=== PATIENT | male | born 1960 | race African-American/Black ===

== ENCOUNTER 2025-04-05 00:20 | Inpatient (IN) | payer MEDICAID, OTHER ==
[~2025-04-05] VITALS: Ht 195.6 cm; Wt 115.2 kg
[2025-04-05 01:47] LABS: BASOPHILS % 0.7 % (0.0-2.0); EOSINOPHILS % 1.3 % (0.0-5.0); HEMATOCRIT. 42.5 % (42.0-52.0); HEMOGLOBIN. 14.4 g/dL (14.0-18.0); LYMPHOCYTES % 41.7 % (20.0-50.0); MEAN PLATELET VOLUME 9.5 fl (7.4-10.4); MONOCYTES % 6.8 % (2.0-8.0); NEUTROPHILS % 49.5 % (40.0-76.0); PLATELET 159 x1000/uL (130-400); RED BLOOD CELL COUNT 4.38 mill/uL (4.7-6.1); RED CELL DISTRIBUTION WIDTH 14.4 % (11.6-14.6)
[2025-04-05 01:57] LABS: CREATININE 1.2 mg/dL (0.6-1.3); UREA NITROGEN BLOOD 10 mg/dL (9-23)
[2025-04-05 01:58] LABS: TROPONIN I HIGH SENSITIVITY 19 ng/L (3.0-53)
[2025-04-05 02:00] LABS: PHOSPHORUS 2.7 mg/dL (2.5-4.9)
[2025-04-05] MEDS: FUROSEMIDE 40MG/4ML VIAL IVP NR (02:41)
[2025-04-05] MEDS: ASPIRIN 325MG EC TABLET PO NR (02:42)
[2025-04-05 03:06] LABS: CLARITY URINE CLEAR (CLEAR); COLOR URINE YELLOW (YELLOW); GLUCOSE URINE NEGATIVE (NEGATIVE); KETONES URINE NEGATIVE (NEGATIVE); LEUKOCYTE ESTERASE URINE NEGATIVE (NEGATIVE); NITRITE URINE NEGATIVE (NEGATIVE); OCCULT BLOOD URINE 1+ (NEGATIVE); PH URINE 5.5 (4.5-8.0); PROTEIN URINE NEGATIVE (NEGATIVE); SPECIFIC GRAVITY URINE 1.012 (1.005-1.030); UROBILINOGEN URINE 1.0 E.U./dL (0.2-1.0)
[2025-04-05 05:39] LABS: BACTERIA URINE NONE SEEN; RBC URINE 0-2 /hpf (0-2); SQUAMOUS EPITHELIAL CELL URINE NONE SEEN /lpf (RARE/1+); WBC URINE 0-2 /hpf (0-2)
[2025-04-05 07:00] VITALS: BP 137/65; PULSE 89; RESP 20; TEMP 36.4; O2SAT 100
[2025-04-05 08:00] VITALS: BP 126/84; PULSE 46; RESP 15; RESP 20; TEMP 36.3; TEMP 36.3068; O2SAT 98
[2025-04-05] MEDS ORDERED: ACETAMINOPHEN 325MG TABLET PO PRN ×2 (08:00→14:00)
[2025-04-05] MEDS ORDERED: NALOXONE HCL 0.4MG/ML VIAL IV PRN (08:00)
[2025-04-05] MEDS ORDERED: ENOXAPARIN 40MG/0.4ML SYR SUBCUT SCH (09:00)
[2025-04-05] MEDS: ENOXAPARIN 30MG/0.3ML SYR SUBCUT SCH (09:17)
[2025-04-05 12:00] VITALS: BP 109/77; PULSE 80; RESP 18; TEMP 36.3; O2SAT 98
[2025-04-05] MEDS ORDERED: IPRATROPIUM/ALBUTEROL 0.5-3(2.5)MG/3ML NEB HHN PRN (14:15)
[2025-04-05] MEDS: PANTOPRAZOLE SODIUM 40 MG/VIAL IV SCH (15:04)
[2025-04-05 16:00] VITALS: BP 131/78; PULSE 46; RESP 15; TEMP 36.5; O2SAT 97
[2025-04-05 16:06] LABS: CLARITY URINE CLEAR (CLEAR); COLOR URINE YELLOW (YELLOW); GLUCOSE URINE NEGATIVE (NEGATIVE); KETONES URINE NEGATIVE (NEGATIVE); LEUKOCYTE ESTERASE URINE NEGATIVE (NEGATIVE); NITRITE URINE NEGATIVE (NEGATIVE); OCCULT BLOOD URINE NEGATIVE (NEGATIVE); PH URINE 6.0 (4.5-8.0); PROTEIN URINE NEGATIVE (NEGATIVE); SPECIFIC GRAVITY URINE 1.008 (1.005-1.030); UROBILINOGEN URINE 2.0 E.U./dL (0.2-1.0)
[2025-04-05 16:26] LABS: BACTERIA URINE TRACE; RBC URINE NONE SEEN /hpf (0-2); SQUAMOUS EPITHELIAL CELL URINE RARE /lpf (RARE/1+); WBC URINE 0-2 /hpf (0-2)
[2025-04-05 16:30] LABS: *AMPHETAMINES SCREEN URINE NEGATIVE (NEGATIVE); *BARBITURATES SCREEN URINE NEGATIVE (NEGATIVE); *BENZODIAZEPINES SCREEN URINE NEGATIVE (NEGATIVE); *COCAINE SCREEN URINE NEGATIVE (NEGATIVE)
[2025-04-05 16:31] LABS: CANNABINOID URINE SCREEN NEGATIVE (NEGATIVE); ECSTASY MDMA SCREEN URINE NEGATIVE (NEGATIVE); METHADONE URINE SCREEN NEGATIVE (NEGATIVE); OPIATES URINE SCREEN NEGATIVE (NEGATIVE); PHENCYCLIDINE URINE SCREEN NEGATIVE (NEGATIVE)
[2025-04-05 20:00] VITALS: BP 123/96; PULSE 46; RESP 18; TEMP 36.7; O2SAT 99
[2025-04-05 21:56] LABS: TRIGLYCERIDE 162.0 mg/dL (0-150)
[2025-04-05 21:57] LABS: LDL CHOLESTEROL 74.0 mg/dL (5-100)
[2025-04-05 22:00] LABS: T4 FREE 1.04 ng/dL (0.89-1.76)
[2025-04-06] VITALS (7 sets, daily range): BP systolic 99–124; BP diastolic 72–80; PULSE 50–101; RESP 18–19; TEMP 36.3–36.8; O2SAT 95–100
[2025-04-06 07:09] LABS: BASOPHILS % 0.7 % (0.0-2.0); EOSINOPHILS % 1.3 % (0.0-5.0); HEMATOCRIT. 40.1 % (42.0-52.0); HEMOGLOBIN. 13.6 g/dL (14.0-18.0); LYMPHOCYTES % 40.3 % (20.0-50.0); MEAN PLATELET VOLUME 9.6 fl (7.4-10.4); MONOCYTES % 8.8 % (2.0-8.0); NEUTROPHILS % 48.9 % (40.0-76.0); PLATELET 141 x1000/uL (130-400); RED BLOOD CELL COUNT 4.14 mill/uL (4.7-6.1); RED CELL DISTRIBUTION WIDTH 14.5 % (11.6-14.6)
[2025-04-06 07:14] LABS: CREATININE 1.1 mg/dL (0.6-1.3); UREA NITROGEN BLOOD 12 mg/dL (9-23)
[2025-04-06] MEDS: FUROSEMIDE 40MG/4ML VIAL IVP SCH (09:23)
[2025-04-06] MEDS: METOPROLOL TARTRATE 25MG TABLET PO SCH (11:30)
[2025-04-06 18:05] LABS: BG BASE EXCESS -0.4 mmol/L (-2.0-3.0); BG CARBOXYHEMOGLOBIN 0.8 % (0.5-1.5); BG DEOXYHEMOGLOBIN 6.6 % (0.0-5.0); BG FRACTION INSPIRED OXYGEN 21; BG HCO3 ACT 23.8 mmol/L (21.0-28.0); BG METHEMOGLOBIN 0.0 % (0.5-1.5); BG OXYGEN SATURATION 93.3 % (94.0-98.0); BG OXYHEMOGLOBIN 92.6 % (94.0-98.0); BG PCO2 37.8 mmHg (35.0-48.0); BG PH 7.417 (7.350-7.450); BG PO2 67.3 mmHg (83.0-108.0); BG SAMPLE SITE RIGHT RADIAL; BG TOTAL HEMOGLOBIN 15.2 g/dL (13.5-17.5); BG VENT MODE ROOM AIR
[2025-04-06] MEDS ORDERED: HYDR10TA34 PO (18:16)
[2025-04-06] MEDS ORDERED: LISI-186 PO (18:16)
[2025-04-06] MEDS ORDERED: GABA-1180 PO (18:16)
[2025-04-06] MEDS ORDERED: ATOR-2 PO (18:16)
[2025-04-06] MEDS ORDERED: IBUP-2030 PO (18:16)
[2025-04-06] MEDS ORDERED: METF-414 PO (18:16)
[2025-04-06] MEDS ORDERED: ASPI-1406 PO (18:16)
[2025-04-06] MEDS ORDERED: FLUO20SO24 PO (18:16)
[2025-04-06] MEDS ORDERED: BACL-141 PO (18:16)
[2025-04-06] MEDS: IPRATROPIUM/ALBUTEROL 0.5-3(2.5)MG/3ML NEB HHN SCH (21:03)
[2025-04-06] MEDS: BUDESONIDE 0.5MG/2ML NEB HHN SCH (21:04)
[2025-04-06] MEDS: HYDROCODONE/ACETAMINOPHEN 5/325MG TABLET PO PRN (21:11)
[2025-04-07] VITALS (10 sets, daily range): BP systolic 101–121; BP diastolic 67–85; PULSE 53–89; RESP 17–20; TEMP 35.6–36.3; O2SAT 95–100
[2025-04-07 07:00] LABS: BASOPHILS % 0.5 % (0.0-2.0); EOSINOPHILS % 1.3 % (0.0-5.0); HEMATOCRIT. 40.8 % (42.0-52.0); HEMOGLOBIN. 13.7 g/dL (14.0-18.0); LYMPHOCYTES % 35.8 % (20.0-50.0); MEAN PLATELET VOLUME 9.8 fl (7.4-10.4); MONOCYTES % 8.8 % (2.0-8.0); NEUTROPHILS % 53.6 % (40.0-76.0); PLATELET 137 x1000/uL (130-400); RED BLOOD CELL COUNT 4.16 mill/uL (4.7-6.1); RED CELL DISTRIBUTION WIDTH 14.6 % (11.6-14.6)
[2025-04-07 07:14] LABS: CREATININE 1.0 mg/dL (0.6-1.3)
[2025-04-07 07:15] LABS: UREA NITROGEN BLOOD 10 mg/dL (9-23)
[2025-04-07] MEDS: ASPIRIN 81MG TABLET PO SCH (12:31)
[2025-04-07] MEDS: METOPROLOL TARTRATE 25MG TABLET PO SCH ×2 (15:30→21:00)
[2025-04-08] VITALS (11 sets, daily range): BP systolic 102–116; BP diastolic 60–92; PULSE 64–89; RESP 16–21; TEMP 36.2–37; O2SAT 97–100
[2025-04-08] MEDS ORDERED: LIDOCAINE HCL 2% 5ML SYRINGE IV ONE (12:39)
[2025-04-08] MEDS ORDERED: HEPARIN 1000 UNITS/ML 10ML ONE (12:39)
[2025-04-08] MEDS ORDERED: IODIXANOL 320MG/ML 100 ML BOTTLE IV ONE (12:39)
[2025-04-08] MEDS: MORPHINE SULFATE 4 MG/ML INJ (FOR IV/IM USE) IV SCH (22:13)
[2025-04-08] MEDS: ATORVASTATIN CALCIUM 40MG TABLET PO SCH (22:15)
[2025-04-09] VITALS: BP 112/76; PULSE 70; RESP 20; TEMP 36.3; O2SAT 97
[2025-04-09] MEDS: ONDANSETRON HCL 4MG/2ML INJ IV PRN (00:57)
[2025-04-09] MEDS: MORPHINE SULFATE 4 MG/ML INJ (FOR IV/IM USE) IV NR (02:37)
[2025-04-09 04:00] VITALS: BP 101/66; PULSE 79; RESP 18; TEMP 36.4; O2SAT 98
[2025-04-09 08:00] VITALS: BP 121/77; PULSE 88; RESP 18; TEMP 36.2; O2SAT 99
[2025-04-09 08:19] LABS: BASOPHILS % 0.3 % (0.0-2.0); EOSINOPHILS % 0.2 % (0.0-5.0); HEMATOCRIT. 42.9 % (42.0-52.0); HEMOGLOBIN. 14.3 g/dL (14.0-18.0); LYMPHOCYTES % 20.2 % (20.0-50.0); MEAN PLATELET VOLUME 10.1 fl (7.4-10.4); MONOCYTES % 6.2 % (2.0-8.0); NEUTROPHILS % 73.1 % (40.0-76.0); PLATELET 141 x1000/uL (130-400); RED BLOOD CELL COUNT 4.35 mill/uL (4.7-6.1); RED CELL DISTRIBUTION WIDTH 14.8 % (11.6-14.6)
[2025-04-09 08:20] LABS: CREATININE 1.2 mg/dL (0.6-1.3); UREA NITROGEN BLOOD 11 mg/dL (9-23)
[2025-04-09 08:55] VITALS: PULSE 75
== END 2025-04-09 11:45 | disposition left against medical advice (07) | DRG 191 ==
LOC: ER 00:25 → EDBEDREQ 03:07 → EDBEDREQTM 03:07 → ENRESERV 06:23 → OBSVTOIN 07:35 → 7WST 07:35
PROVIDERS: ADMIT Internal Medicine; ATTEND Internal Medicine
PROC: 4A023N7 Measurement of Cardiac Sampling and Pressure, Left Heart, Percutaneous Approach (ICD-10-PCS; principal; 2025-04-08)
PROC: B211YZZ Fluoroscopy of Multiple Coronary Arteries using Other Contrast (ICD-10-PCS; 2025-04-08)
PROC: B218YZZ Fluoroscopy of Left Internal Mammary Bypass Graft using Other Contrast (ICD-10-PCS; 2025-04-08)
PROC: B215YZZ Fluoroscopy of Left Heart using Other Contrast (ICD-10-PCS; 2025-04-08)
DX: I25.110 Atherosclerotic heart disease of native coronary artery with unstable angina pectoris (principal); J96.01 Acute respiratory failure with hypoxia; I11.0 Hypertensive heart disease with heart failure; I50.9 Heart failure, unspecified; J44.1 Chronic obstructive pulmonary disease with (acute) exacerbation; I49.3 Ventricular premature depolarization; F31.9 Bipolar disorder, unspecified; E11.9 Type 2 diabetes mellitus without complications; E78.00 Pure hypercholesterolemia, unspecified; F20.9 Schizophrenia, unspecified; Z53.29 Procedure and treatment not carried out because of patient's decision for other reasons; I25.82 Chronic total occlusion of coronary artery; G89.29 Other chronic pain; Z20.822 Contact with and (suspected) exposure to COVID-19; I25.2 Old myocardial infarction; Z79.4 Long term (current) use of insulin; Z95.5 Presence of coronary angioplasty implant and graft; Z95.1 Presence of aortocoronary bypass graft
CPT/HCPCS: 36415; 36600; 71045; 74018; 80048; 80061; 80305; 81003; 82375; 82805; 83036; 83735; 83880; 84100; 84439; 84443; 84484; 85025; 87426; 93005; 93306; 93459; 94070; 94640; 94664; 94760; 97162; A4606; C1769; C1887; C1893; G0378; J1644; J1650; J1938; J2003; J2270; J2405; J2470; J7626; Q9967

== ENCOUNTER 2025-04-16 08:07 | Inpatient (IN) | payer MEDICAID ==
[~2025-04-16] VITALS: Ht 195.6 cm; Wt 114.3 kg
[~2025-04-16 08:07] MED LIST: ASPI-1406 PO; ATOR-2 PO; BACL-141 PO; FLUO20SO24 PO; GABA-1180 PO; HYDR10TA34 PO; IBUP-2030 PO; LISI-186 PO; METF-414 PO
[2025-04-16 08:24] VITALS: O2SAT 97
[2025-04-16 09:45] LABS: BASOPHILS % 0.7 % (0.0-2.0); EOSINOPHILS % 0.6 % (0.0-5.0); HEMATOCRIT. 43.4 % (42.0-52.0); HEMOGLOBIN. 14.5 g/dL (14.0-18.0); LYMPHOCYTES % 33.4 % (20.0-50.0); MEAN PLATELET VOLUME 9.6 fl (7.4-10.4); MONOCYTES % 10.5 % (2.0-8.0); NEUTROPHILS % 54.8 % (40.0-76.0); PLATELET 149 x1000/uL (130-400); RED BLOOD CELL COUNT 4.40 mill/uL (4.7-6.1); RED CELL DISTRIBUTION WIDTH 14.6 % (11.6-14.6)
[2025-04-16 09:56] LABS: INR 1.1
[2025-04-16 10:00] LABS: CREATININE 1.2 mg/dL (0.6-1.3); TROPONIN I HIGH SENSITIVITY 11 ng/L (3.0-53)
[2025-04-16 10:01] LABS: UREA NITROGEN BLOOD 8 mg/dL (9-23)
[2025-04-16 10:02] LABS: ASPARTATE AMINOTRANSFERASE 23 IU/L (<34)
[2025-04-16 10:03] LABS: BILIRUBIN DIRECT 0.2 mg/dL (<=3.0); BILIRUBIN TOTAL 0.7 mg/dL (0.1-1.0); PROTEIN TOTAL 6.6 g/dL (6.0-8.3)
[2025-04-16] MEDS ORDERED: GUAIFENESIN 200MG/10ML SUGAR FREE UDC PO PRN (13:30)
[2025-04-16] MEDS ORDERED: ACETAMINOPHEN 325MG TABLET PO PRN ×2 (13:30)
[2025-04-16] MEDS ORDERED: ONDANSETRON HCL 4MG/2ML INJ IV PRN (13:30)
[2025-04-16] MEDS ORDERED: CLONIDINE 0.1MG TABLET PO PRN (13:30)
[2025-04-16] MEDS ORDERED: IPRATROPIUM/ALBUTEROL 0.5-3(2.5)MG/3ML NEB HHN PRN (13:30)
[2025-04-16] MEDS ORDERED: DOCUSATE SODIUM 100MG CAPSULE PO PRN (13:30)
[2025-04-16 13:31] VITALS: BP 115/73; PULSE 98; RESP 18; TEMP 36.4; TEMP 36.418; O2SAT 98
[2025-04-16] MEDS ORDERED: DEXTROSE 50% WATER 50ML SYRINGE IV PRN (13:45)
[2025-04-16] MEDS: FUROSEMIDE 40MG/4ML VIAL IVP SCH (15:03)
[2025-04-16 16:00] VITALS: BP 101/75; PULSE 72; RESP 19; TEMP 36.5; O2SAT 100
[2025-04-16] MEDS: BLOOD SUGAR DIAGNOSTIC STRIP TEST SCH (17:02)
[2025-04-16] MEDS: INSULIN LISPRO 100 UNITS/ML SUBCUT SCH (17:17)
[2025-04-16] MEDS: ENOXAPARIN 30MG/0.3ML SYR SUBCUT SCH (19:25)
[2025-04-16 20:00] VITALS: BP 119/62; PULSE 74; RESP 18; TEMP 36.4
[2025-04-16] MEDS ORDERED: FUROSEMIDE 40MG/4ML VIAL IVP SCH (21:00)
[2025-04-16] MEDS: ATORVASTATIN CALCIUM 40MG TABLET PO SCH (21:02)
[2025-04-17] VITALS: BP 99/54; PULSE 95; RESP 19; TEMP 36.4; O2SAT 98
[2025-04-17 01:39] LABS: TROPONIN I HIGH SENSITIVITY 12 ng/L (3.0-53)
[2025-04-17 04:00] VITALS: BP 109/80; PULSE 81; RESP 19; TEMP 36.4; O2SAT 100
[2025-04-17 07:33] LABS: BASOPHILS % 0.5 % (0.0-2.0); EOSINOPHILS % 1.6 % (0.0-5.0); HEMATOCRIT. 40.8 % (42.0-52.0); HEMOGLOBIN. 13.9 g/dL (14.0-18.0); LYMPHOCYTES % 39.6 % (20.0-50.0); MEAN PLATELET VOLUME 10.5 fl (7.4-10.4); MONOCYTES % 6.7 % (2.0-8.0); NEUTROPHILS % 51.6 % (40.0-76.0); PLATELET 156 x1000/uL (130-400); RED BLOOD CELL COUNT 4.19 mill/uL (4.7-6.1); RED CELL DISTRIBUTION WIDTH 14.7 % (11.6-14.6)
[2025-04-17 07:35] LABS: CREATININE 1.2 mg/dL (0.6-1.3); UREA NITROGEN BLOOD 13 mg/dL (9-23)
[2025-04-17 07:37] LABS: ASPARTATE AMINOTRANSFERASE 18 IU/L (<34); BILIRUBIN DIRECT 0.2 mg/dL (<=3.0); BILIRUBIN TOTAL 0.5 mg/dL (0.1-1.0); PROTEIN TOTAL 6.2 g/dL (6.0-8.3)
[2025-04-17 07:38] LABS: T4 FREE 1.08 ng/dL (0.89-1.76)
[2025-04-17 08:00] VITALS: BP 116/79; PULSE 79; RESP 17; TEMP 36.7; O2SAT 99
[2025-04-17] MEDS: ASPIRIN 81MG TABLET PO SCH (08:24)
[2025-04-17] MEDS: LISINOPRIL 5MG TABLET PO SCH (08:25)
[2025-04-17] MEDS: POTASSIUM CHLORIDE 20MEQ/PACKET PO SCH ×2 (08:58→15:24)
[2025-04-17] MEDS: AMIODARONE 200MG TABLET PO SCH (08:58)
[2025-04-17 12:00] VITALS: BP 116/71; PULSE 100; RESP 19; TEMP 36.7; O2SAT 100
[2025-04-17] MEDS: MAGNESIUM 2 G PREMIX 50 ML IV SCH (12:12)
[2025-04-17] MEDS: SPIRONOLACTONE 12.5MG TABLET PO SCH (13:57)
[2025-04-17] MEDS: EMPAGLIFLOZIN 10MG TABLET PO SCH (13:59)
[2025-04-17 16:00] VITALS: BP 111/76; PULSE 91; RESP 17; TEMP 36.5; O2SAT 98
[2025-04-17] MEDS ORDERED: METO25TA6 PO (17:03)
[2025-04-17] MEDS ORDERED: LIP40 PO (17:03)
[2025-04-17] MEDS ORDERED: SPIR25TA PO (17:03)
[2025-04-17] MEDS ORDERED: AMI2 PO (17:03)
[2025-04-17] MEDS ORDERED: LISI-186 PO (17:03)
[2025-04-17] MEDS ORDERED: EMPA10TA PO (17:03)
[2025-04-17] MEDS ORDERED: DOCU-422 PO (17:03)
[2025-04-17] MEDS ORDERED: FURO10VI3 IVP (17:03)
[2025-04-17] MEDS ORDERED: ASPI-1160 PO (17:03)
[2025-04-17 17:27] VITALS: BP 116/75; PULSE 86; RESP 18; TEMP 98
[2025-04-17] MEDS ORDERED: AMIODARONE 200MG TABLET PO SCH (21:00)
[2025-04-17] MEDS ORDERED: METOPROLOL TARTRATE 25MG TABLET PO SCH (21:00)
== END 2025-04-17 18:04 | disposition home or self-care (01) | DRG 194 ==
LOC: ER 08:07 → 8WST 12:08 → EDBEDREQ 12:12 → EDBEDREQTM 12:12 → ENRESERV 12:25
PROVIDERS: ADMIT Hospitalist; ATTEND Hospitalist
DX: I11.0 Hypertensive heart disease with heart failure (principal); I47.29 Other ventricular tachycardia; Z95.1 Presence of aortocoronary bypass graft; I25.10 Atherosclerotic heart disease of native coronary artery without angina pectoris; I50.23 Acute on chronic systolic (congestive) heart failure; E78.00 Pure hypercholesterolemia, unspecified; F31.9 Bipolar disorder, unspecified; F20.9 Schizophrenia, unspecified; J45.909 Unspecified asthma, uncomplicated; E11.65 Type 2 diabetes mellitus with hyperglycemia; I49.3 Ventricular premature depolarization; Z79.899 Other long term (current) drug therapy; I25.2 Old myocardial infarction; Z79.84 Long term (current) use of oral hypoglycemic drugs
CPT/HCPCS: 36415; 71045; 80048; 80076; 82962; 83036; 83735; 83880; 84439; 84443; 84484; 85025; 93005; 94640; 99285; J1650; J1815; J1938; J3475

== ENCOUNTER 2025-06-14 11:25 | Emergency (ER) | payer MEDICAID ==
[~2025-06-14] VITALS: Ht 193 cm; Wt 110.8 kg
[~2025-06-14 11:25] MED LIST changes: +AMI2 PO; +ASPI-1160 PO; +DOCU-422 PO; +EMPA10TA PO; +LIP40 PO; +METO25TA6 PO; +SPIR25TA PO
[2025-06-14 11:35] VITALS: O2SAT 99
[2025-06-14 12:07] LABS: BASOPHILS % 0.2 % (0.0-2.0); EOSINOPHILS % 0.5 % (0.0-5.0); HEMATOCRIT. 44.8 % (42.0-52.0); HEMOGLOBIN. 14.9 g/dL (14.0-18.0); LYMPHOCYTES % 29.6 % (20.0-50.0); MEAN PLATELET VOLUME 9.0 fl (7.4-10.4); MONOCYTES % 7.8 % (2.0-8.0); NEUTROPHILS % 61.9 % (40.0-76.0); PLATELET 149 x1000/uL (130-400); RED BLOOD CELL COUNT 4.56 mill/uL (4.7-6.1); RED CELL DISTRIBUTION WIDTH 14.7 % (11.6-14.6)
[2025-06-14 12:30] LABS: CREATININE 1.5 mg/dL (0.6-1.3); UREA NITROGEN BLOOD 17.0 mg/dL (9-23)
[2025-06-14 13:45] VITALS: BP 101/73; PULSE 54; RESP 14; TEMP 36.7; O2SAT 100
== END 2025-06-14 13:51 | disposition home or self-care (01) ==
LOC: ER 11:25
DX: S99.921A Unspecified injury of right foot, initial encounter (principal); E11.9 Type 2 diabetes mellitus without complications; E78.00 Pure hypercholesterolemia, unspecified; F20.9 Schizophrenia, unspecified; F31.9 Bipolar disorder, unspecified; I10 Essential (primary) hypertension; J45.909 Unspecified asthma, uncomplicated; Z79.899 Other long term (current) drug therapy; X58.XXXA Exposure to other specified factors, initial encounter; Y93.89 Activity, other specified; Y92.89 Other specified places as the place of occurrence of the external cause; Y99.8 Other external cause status
CPT/HCPCS: 36415; 73630; 80048; 82962; 85025; 99284